=== PATIENT | female | born 1975 | race Caucasian/White ===

== ENCOUNTER → 2017-04-19 | Outpatient (CLI) | payer OTHER | LOC: CIMAGING 17:01 | PROVIDERS: ATTEND Family Medicine | DX: M54.16 Radiculopathy, lumbar region (principal); M43.16 Spondylolisthesis, lumbar region; Z98.890 Other specified postprocedural states | CPT/HCPCS: 72100-PO ==

== ENCOUNTER 2018-07-07 13:07 | Emergency (ER) | payer OTHER ==
[2018-07-07] MEDS ORDERED: ONDANSETRON 4 MG/2 ML VIAL IVP ONE (13:31)
[2018-07-07] MEDS ORDERED: NS 1,000 ML IV ONE (13:31)
[2018-07-07] MEDS ORDERED: KETOROLAC 15 MG/1 ML SDV IVP ONE (13:31)
--- NOTE | 2018-07-07 13:36 | EDPHY ---
H & P Stated Complaint: abd pain bilateral mid abd cramping since yesterday afternoon Time Seen by Provider: 07/07/18 13:10 HPI/ROS: Chief Complaint: Abdominal pain HPI: 42-year-old woman with a history of gastric sleeve surgery 2 years ago is presenting with worsening epigastric abdominal pain for the last 2 days. Patient notes the pain 1st yesterday but got more severe today. Some nausea but no vomiting. No diarrhea or constipation. No fevers or chills. Pain is an 8/10. There are no aggravating or alleviating factors. She does not have a history of similar pain in the past. She did not have any relief with antacid medications. No fevers or chills. No cough. ROS: 10 systems were reviewed and were negative except those elements noted in the HPI. PMH: Hypothyroid, gastric sleeve surgery Social History: No smoking, no alcohol, no recreational drug use Family History: non-contributory Physical Exam: Gen: Awake, Alert, No Distress HEENT: Nose: no rhinorrhea Eyes: PERRLA, EOMI Mouth: Moist mucosa Neck: Supple, no JVD Chest: nontender, lungs clear to auscultation Heart: S1, S2 normal, no murmur Abd: Soft, moderate epigastric tenderness, no right upper quadrant tenderness, no lower abdominal tenderness, no guarding Back: no CVA tenderness, no midline tenderness Ext: no edema, non-tender Skin: no rash Neuro: CN II-XII intact, Sensation grossly intact, Strength 5/5 in bilateral upper and lower extremities - Personal History LMP (Females 10-55): 8-14 Days Ago Current Tetanus/Diphtheria Vaccine: Unsure Current Tetanus Diphtheria and Acellular Pertussis (TDAP): Unsure - Medical/Surgical History Hx Asthma: No Hx Chronic Respiratory Disease: No Hx Diabetes: No Hx Cardiac Disease: No Hx Renal Disease: No Hx Cirrhosis: No Hx Alcoholism: No Hx HIV/AIDS: No Hx Splenectomy or Spleen Trauma: No Other PMH: hypo thyroid. gastric sleeve surg 2yrs ago. l5S1 fusion and si joint fusion. Tubal removal - Social History Smoking Status: Current some day smoker Constitutional: Initial Vital Signs Temperature (C) 36.9 C 07/07/18 13:16 Heart Rate 69 07/07/18 13:16 Respiratory Rate 18 07/07/18 13:16 Blood Pressure 118/83 H 07/07/18 13:16 O2 Sat (%) 95 07/07/18 13:16 O2 Delivery Mode Room Air Allergies/Adverse Reactions: No Known Allergies Allergy (Verified 07/07/18 13:21) Home Medications: Medication Instructions Recorded Levothyroxine 07/07/18 Protonix 07/07/18 Medical Decision Making - Diagnostics Imaging: Discussed imaging studies w/ call manager Radiologist ED Course/Re-evaluation: 42-year-old woman with epigastric pain with a history of gastric sleeve. Laboratory evaluations are unremarkable with the exception of minimally elevated transaminase. Abdomen is soft. She has had minimal relief with IV Toradol and fluids. She does not want any narcotics at this time. Still awaiting CT scan. Abdominal CT results noted. There is diffuse thickening of the distal esophagus and fundus consistent with reflux esophagitis. I have had a long discussion with the patient. She admits that she is taking ibuprofen daily for chronic back pain. She also drinks all quite a bit of caffeine. We discussed discontinuing caffeine and ibuprofen for this condition. She is taking Protonix. She can take Maalox and can at on famotidine. I will provide her with information for a gastritis and peptic ulcer disease diet. Will refer her to Gastroenterology for follow-up. - Data Points Laboratory Results: 07/07/18 13:51 POC Sodium 141 mEq/L mEq/L (135-145) POC Potassium 3.9 mEq/L mEq/L (3.3-5.0) POC Chloride 104.0 mEq/L mEq/L (97-110) POC Total CO2 25 mEq/L mEq/L (22-31) POC BUN 15 mg/dL mg/dL (7-23) POC Creatinine 0.9 mg/dL mg/dL (0.6-1.0) POC Glucose 91 mg/dL mg/dL (70-100) POC Calcium 9.6 mg/dL mg/dL (8.5-10.4) POC Total Bilirubin 0.9 mg/dL mg/dL (0.1-1.4) POC AST 56 IU/L H IU/L (14-46) POC ALT 30 IU/L IU/L (9-52) POC Alk Phosphatase 55 IU/L IU/L (38-126) POC Total Protein 6.9 g/dL g/dL (6.3-8.2) POC Albumin 3.7 g/dL g/dL (3.5-5.0) Medications Given: Discontinued Medications Sodium Chloride (Ns) 1,000 mls @ 0 mls/hr IV ONCE ONE; Wide Open PRN Reason: Protocol Stop: 07/07/18 13:32 Last Admin: 07/07/18 13:52 Dose: 1,000 mls Ketorolac Tromethamine (Toradol) 15 mg IVP EDNOW ONE Stop: 07/07/18 13:32 Last Admin: 07/07/18 13:57 Dose: 15 mg Ondansetron HCl (Zofran) 4 mg IVP EDNOW ONE Stop: 07/07/18 13:32 Last Admin: 07/07/18 13:54 Dose: 4 mg Point of Care Test Results: CBC CBC Collection Date 07/07/18 CBC Collection Time 13:45 WBC 8.38 RBC 4.19 HGB 13.4 HCT 39.8 PLT 272 Neut # 4.50 Neut 53.7 LYMPH # 2.48 LYMPH 29.6 MCV 95.0 Chemistry 07/07/18 13:51 POC Sodium 141 mEq/L mEq/L (135-145) POC Potassium 3.9 mEq/L mEq/L (3.3-5.0) POC Chloride 104.0 mEq/L mEq/L (97-110) POC Total CO2 25 mEq/L mEq/L (22-31) POC BUN 15 mg/dL mg/dL (7-23) POC Creatinine 0.9 mg/dL mg/dL (0.6-1.0) POC Glucose 91 mg/dL mg/dL (70-100) POC Calcium 9.6 mg/dL mg/dL (8.5-10.4) POC Total Bilirubin 0.9 mg/dL mg/dL (0.1-1.4) POC AST 56 IU/L H IU/L (14-46) POC ALT 30 IU/L IU/L (9-52) POC Alk Phosphatase 55 IU/L IU/L (38-126) POC Total Protein 6.9 g/dL g/dL (6.3-8.2) POC Albumin 3.7 g/dL g/dL (3.5-5.0) Departure - Departure Disposition: Home, Routine, Self-Care Clinical Impression: Esophagitis Condition: Good Instructions: Diet for Stomach Ulcers and Gastritis (ED), Esophagitis (ED) Additional Instructions: You may take famotidine available [id number] according to package instructions. Avoid caffeine, ibuprofen, spicy foods, acidic foods, and chocolate. Follow up with conference center manager in 3-4 days for further evaluation. Referrals: Betzy Varghese MD [Primary Care Provider] - As per Instructions Alex Nuñez MD, FACG [Medical Doctor] - As per Instructions
[2018-07-07] MEDS ORDERED: IOPAMIDOL (ISOVUE-300) 100 ML BTL ONE (13:39)
[2018-07-07] MEDS ORDERED: MAG HYDROX/AL HYDROX/SIMETH 30 ML UDCUP PO ONE (14:47)
[2018-07-07] MEDS ORDERED: LIDOCAINE 2% VISCOUS 15 ML UDCUP PO ONE (14:47)
[2018-07-07 15:39] VITALS: BP 118/76
== END 2018-07-07 15:44 | disposition home or self-care (01) ==
LOC: CED 13:07
DX: K20.9 Esophagitis, unspecified (principal); E86.9 Volume depletion, unspecified
CPT/HCPCS: 74177-PO; 80053-ER; 85025-QW-ER; 96361-ER; 96374-ER; 96375-ER; 99285-ER; J1885; J2405; Q9967